=== PATIENT | male | born 2005 | race Two or more races ===

== ENCOUNTER 2024-04-14 18:15 | Emergency (ER) | payer SELFPAY ==
[2024-04-14 19:23] VITALS: BP 132/79; PULSE 73; RESP 16; TEMP 37.4; O2SAT 98; BMI 25.0
--- NOTE | 2024-04-14 19:38 | ED_ITS ---
HPI - General Adult General Chief complaint: Ear Problems Stated complaint: rt ear pain Time Seen by Provider: 04/14/24 19:33 Source: patient Mode of arrival: ambulatory Limitations: no limitations History of Present Illness ED Provider: Evgeny Echeverria PA-C HPI narrative: 18-year-old male healthy presents to ED for right ear pain. Patient states having pain for 3 days. Patient states low-grade fever 99.3. Patient denies any recent trauma to the ear, headache, ear discharge, ear drainage, fever, chills, nausea, vomiting, bleeding from the ear, clear liquid from the ear, or neck pain. Patient denies any coughing, chest pain, or shortness of breath Related Data Previous Rx's ?Medication ?Instructions ?Recorded cefpodoxime 200 mg tablet 200 mg PO Q12H 7 days #14 tabs 04/14/24 naproxen 500 mg tablet 500 mg PO BID PRN pain 7 days #14 04/14/24 tabs Allergies Allergy/AdvReac Type Severity Reaction Status Date / Time amoxicillin [Amoxicillin] Allergy Unknown RASH Verified 04/14/24 19:24 Review of Systems Review of Systems: Right ear pain Yes all other systems are reviewed and are negative [facility] Social History Social History Smoked in Last 30 Days: No Advance Directives: No Advance Directives Information Provided: No Do you have a plan to hurt others: No Plan Physical Exam ED Vital Signs: Vital Signs - 24 hr 04/14/24 19:23 04/14/24 20:00 Temperature 99.3 F 99.3 F Pulse Rate 73 73 Respiratory Rate 16 16 Blood Pressure 132/79 132/79 Pulse Oximetry 98 98 Oxygen Delivery Method Room Air Room Air BMI result Body Mass Index 25.0 Const General: cooperative, healthy appearing, comfortable, no acute distress, well developed, alert, awake and Physically active Orientation/consciousness: patient oriented x3 HENMT Head: Yes normal to inspection, Yes No palpable skull fracture present, Yes normocephalic, Yes atraumatic and No abrasion Ears: hearing grossly normal bilaterally, external ears normal, TM normal on the left, EAC's normal, mastoids normal, no periauricular adenopathy and TM abnormal erythematous on the right Eyes General: appearance normal, both eyes and all related structures Neck Neck: Yes normal visual inspection, Yes full ROM, Yes no lymphadenopathy, Yes no meningeal signs, Yes trachea midline, Yes supple, No anterior neck swelling and No tender Chest Chest palpation & inspection: normal inspection of the chest and normal palpation of entire chest wall Resp Effort & Inspection: normal respiratory effort and able to speak in complete sentences Auscultation: clear to auscultation bilaterally Cardio Jugular venous distension: no JVD Heart sounds: S1 normal heart sound present and S2 normal heart sound present GI Inspection: Yes normal to inspection Palpation (GI): Soft to palpation, not firm, nontender, no guarding and not rigid General: No CVA tenderness and Yes no CVA tenderness Back/Spine/Pelvis Back: no CVA tenderness, No CVA tenderness and No back tenderness Skin General skin exam: no rashes or lesions noted, elasticity normal and turgor normal Neuro General: patient oriented x3, gait normal, tone normal, moves all extremities, Normal light touch and pain sensation, no meningeal signs, no focal motor deficits, CN's II-XI intact bilaterally and normal sensation to monofilament Extrem General: Yes normal to inspection, Yes full ROM and Yes capillary refill normal Psych Appearance: grossly normal, well kempt and not disheveled Medical Decision Making Medical Decision Making MDM Narrative: 18 yold male presents to ED for right ear pain. Patient denies any recent swimming or drainage from the ear. Patient denies any bleeding from the ear. Patient denies any headache or recent trauma. Patient states no fever or chills. Patient denies any swelling redness behind or in front of ear. Physical exam indicates otitis media right ear. Not suspecting mastoiditis. Not suspecting otitis externa. Not suspecting osteomyelitis. not suspecting brain bleed. Not suspecting SARs, COVID, influenza, RSV. Not suspecting strep. Patient explained worrisome signs and informed to follow up with primary care provider Differential Diagnosis Differential Diagnoses: The differential diagnosis associated with the presentation includes (Otitis media, otitis externa) Admission/Observation Consideration of admission/observation: Escalation of care including admission/observation considered Independent Historian Clinical information obtained from an independent historian. History obtained fr om or confirmed by: Other (Patient) External Record Review External record reviewed: Other (prior visits) Prescription Management I considered prescription management with: Antibiotic Discharge Plan Discharge Clinical Impression: Otitis media Patient Disposition: Home, Self-Care Instructions: Ear Infection (ED) Additional Instructions: Recommend follow-up with the primary care provider. Return to the ED immediately for any worsening ear pain, drainage from the ear, bleeding from the ear, swelling redness in front/behind ear, dizziness, severe headache, nausea, vomiting, or any other concerning symptoms. Prescriptions: New naproxen 500 mg tablet 500 mg PO BID PRN (Reason: pain) 7 Days Qty: 14 0RF cefpodoxime 200 mg tablet 200 mg PO Q12H 7 Days Qty: 14 0RF Rx Instructions: must administer with a meal/food Stand Alone Forms: Work/School Release Interventions: ED Discharge Assessment Last Done: 04/14/24 20:00 Discharge Date/Time: 04/14/24 20:00 Print Language: Romanian
[2024-04-14 20:00] VITALS: BP 132/79; PULSE 73; RESP 16; TEMP 37.4; O2SAT 98
== END 2024-04-14 20:00 | disposition home or self-care (01) ==
PROVIDERS: Emergency Provider Internal Medicine
DX: H66.91 Otitis media, unspecified, right ear (principal); H92.01 Otalgia, right ear
CPT/HCPCS: 99283